=== PATIENT | female | born 1985 | race Hispanic/Latino ===

== ENCOUNTER 2018-10-22 01:16 | Emergency (ER) | payer OTHER ==
[2018-10-22] MEDS ORDERED: Lidocaine 2% Inj (20ml) ONE (05:28)
[2018-10-22 09:13] LABS: BLOOD UREA NITROGEN 16 mg/dl (7-17); GFR NON-AFRICAN AMERICAN > 60
[2018-10-22 09:14] LABS: ALB/GLOB RATIO 1.1 (1.0-2.1); ALBUMIN 3.2 g/dL (3.5-5.0); AST/SGOT 37 U/L (14-36); CALCIUM 8.6 mg/dL (8.4-10.2)
[2018-10-22 09:15] LABS: ALT/SGPT 53 U/L (9-52)
[2018-10-22 09:18] LABS: BASO # 0.1 K/uL (0.0-0.2); EOS # 0.2 K/uL (0.0-0.7); EOS % 2.7 % (0.0-4.0); HEMOGLOBIN 11.2 g/dL (12.0-16.0); LYMPH # 1.7 K/uL (1.0-4.3); MEAN CELL VOLUME 92.4 fl (81.0-99.0); MEAN CORPUSCULAR HEMOGLOBIN 31.4 pg (27.0-31.0); MEAN PLATELET VOLUME 7.8 fl (7.2-11.7); MONO # 0.8 K/uL (0.0-0.8); MONO % 9.7 % (0.0-10.0); NEUT # 5.4 K/uL (1.8-7.0); NEUT % 65.6 % (50.0-75.0); RBC 3.58 Mil/uL (3.80-5.20); WHITE BLOOD COUNT 8.2 K/uL (4.8-10.8)
--- NOTE | 2018-10-22 11:06 | US ---
Date of service: 10/22/2018 HISTORY: ER ORDER COMPARISON: None available. TECHNIQUE: Grayscale, color Doppler and spectral evaluation the pelvis performed transabdominally FINDINGS: UTERUS: Enlarged, measuring 17.2 x 6.9 x 12.2 cm. Heterogeneous and hypervascular. No fibroid or other mass lesion seen. ENDOMETRIUM: Measures 13 mm in diameter. Unremarkable. CERVIX: No cervical abnormality identified. RIGHT OVARY: Not visualized LEFT OVARY: Measures 4.5 x 3.1 x 3.4 cm. No solid mass. Normal flow. FREE FLUID: No significant free fluid noted. OTHER FINDINGS: None. IMPRESSION: Enlarged heterogeneous uterus with increased vascularity, related to state. No evidence of retained products of conception.
--- NOTE | 2018-10-22 19:55 | CP.PCM.CON ---
<Juan Pablo Nieto - Last Filed: 10/22/18 20:01> History of Present Illness - History of Present Illness History of Present Illness: Patient seen and evaluated by Dr. Dempsey and resident at bedside in ED at 4: 30 AM on 10/22/18. 33 y/o F, , s/p presents to ED on PPD6 with complain of vaginal bleedin g. Patient reports having at [facility] with perineal tear repair and since then she continues to have bright red vaginal bleeding with clots. Patient reports noticing heavy vaginal bleeding 12:40 tonight so called EMS. Patient denies any headache, dizziness, CP, SOB, worsening of lower abdominal pain, nausea, vomiting, diarrhea or fever. PMD: Dr. Mcdonald Office No [phone] OBHx: 1 6 days ago, delivered 6 lb baby, 15 mins 2nd stage of labor. PMHx: Asthma PSHx: open heart surgery at 18 month and R aortic valve repair Allergies: NKDA Medications: PNVs, Colace and Advil PRN for pain Social Hx: Denies smoking, Etoh, drugs Review of Systems - EENT Eyes: absent: Change in Vision Ears: absent: Dizziness - Cardiovascular Cardiovascular: absent: Chest Pain, Chest Pain at Rest - Respiratory Respiratory: absent: Dyspnea - Gastrointestinal Gastrointestinal: absent: Abdominal Pain, Nausea, Vomiting - Genitourinary Genitourinary: absent: Change in Urinary Stream, Dysuria - Reproductive: Female Reproductive:Female: Abnormal Vaginal Bleeding Physical Exam - Constitutional Appears: Well, Non-toxic, No Acute Distress - Head Exam Head Exam: ATRAUMATIC, NORMAL INSPECTION, NORMOCEPHALIC - Eye Exam Eye Exam: EOMI, Normal appearance, PERRL - ENT Exam ENT Exam: Mucous Membranes Moist - Neck Exam Neck exam: Positive for: Normal Inspection - Respiratory Exam Respiratory Exam: Clear to Auscultation Bilateral - Cardiovascular Exam Cardiovascular Exam: REGULAR RHYTHM, +S1, +S2 - GI/Abdominal Exam GI & Abdominal Exam: Normal Bowel Sounds, Soft. absent: Tenderness - Exam External exam: Lacerations Speculum exam: Vaginal Bleeding Additional comments: SSE: + vaginal bleeding, + sutures for perineal tear repair. Ozzing blood from vagina. No bleeding from cervix noted. LE: No pedal edema - Extremities Exam Extremities exam: Negative for: calf tenderness, pedal edema, tenderness - Neurological Exam Neurological exam: Alert, Altered, Oriented x3 - Psychiatric Exam Psychiatric exam: Normal Affect, Normal Mood - Skin Skin Exam: Dry, Intact, Normal Color Results - Labs Result Diagrams: 10/22/18 02:00 10/22/18 02:00 Labs: Laboratory Results - last 24 hr 10/22/18 10/22/18 10/22/18 02:00 02:00 02:00 WBC 8.2 RBC 3.58 L Hgb 11.2 L Hct 33.0 L MCV 92.4 MCH 31.4 H MCHC 34.0 RDW 12.0 Plt Count 186 MPV 7.8 Neut % (Auto) 65.6 Lymph % (Auto) 21.0 Will % (Auto) 9.7 Eos % (Auto) 2.7 Baso % (Auto) 1.0 Neut # (Auto) 5.4 Lymph # (Auto) 1.7 Will # (Auto) 0.8 Eos # (Auto) 0.2 Baso # (Auto) 0.1 Sodium 134 Potassium 3.8 Chloride 104 Carbon Dioxide 25 Anion Gap 9 L BUN 16 Creatinine 0.5 L Est GFR ( Amer) > 60 Est GFR (Non-Af Amer) > 60 Random Glucose 94 Calcium 8.6 Total Bilirubin 0.2 AST 37 H ALT 53 H Alkaline Phosphatase 111 Total Protein 6.2 L Albumin 3.2 L Globulin 3.0 Albumin/Globulin Ratio 1.1 Blood Type A NEGATIVE Antibody Screen Positive Antibody Identification ANTI D DUE TO RhoG[facility] BBK History Checked No verified bt Assessment & Plan - Assessment and Plan (Free Text) Assessment: 33 y/o F, , s/p presents to ED on PPD6 with complain of vaginal bleeding. Likely secondary to vaginal laceration/perineal tear. - CBC HGB 11.2, CMP unremarkable - US: Enlarged uterus with increased vascularity but no retained POC or placenta noted. Likely normal changes. - SSE: + vaginal bleeding, + sutures for perineal tear repair. Ozzing blood from vagina. No bleeding from cervix noted. - Vaginal/perineal tear repaired using Vicryl Rapide 2.0 done. No active bleeding S/P repair. Antiseptic precaution - Patient advised to monitor bleeding and RTC/ER if bleeding continues. ER precautions provided. - Will call Dr. Olson office to inform about patient. - Patient to F/U with Dr Dempsey or OBGYN within 1 week. Case discussed with Dr. Dempsey. Juan Pablo Nieto, PGY1 <Abdon Dempsey - Last Filed: 10/27/18 10:05> Results - Labs Result Diagrams: 10/22/18 02:00 10/22/18 02:00 Assessment & Plan - Assessment and Plan (Free Text) Plan: OB Hospitalist note: Pt seen and examined with PGY1. Small active bleeding noted form perineal laceration site. Vagina - no VB noted; Cx no blood from cervical os. When we left to obtain equipment (sutures/local anesthesia/needle delivery driver/customer service), I placed pressure packing in the area. When we came back, the site was bleeding (nowhere else). VB was confirmed from perineum - it was intact but previous sutures not approximated well. Using 2.0 Vicryl Rapide suture, figure of eight sutures placed x 2 - Hemostasis assured. No more bleeding. Call will be placed to her OB provider later in the day. Local care and advised her to follow up later this week to check the site. She understood - Date & Time Date: 10/27/18 Time: 10:05
--- NOTE | 2018-10-22 22:43 | ED PDOC ---
HPI: Female Pain Time Seen by Provider: 10/22/18 01:30 Chief Complaint (Nursing): Female Genitourinary Chief Complaint (Provider): vaginal bleeding History Per: Patient History/Exam Limitations: no limitations Onset/Duration Of Symptoms: Hrs (1.5) Current Symptoms Are (Timing): Still Present Additional History Per: Patient Additional Complaint(s): 33 y/o female brought in by EMS for evaluation of heavy vaginal bleeding x 1.5 hours. Patient states she is 6 days post-vaginal delivery and has had light bleeding since then, which suddenly became heavy with large clots tonight. Denies fever, headache, dizziness, nausea/vomiting, chest pain, shortness of breath, palpitations, abdominal pain, urinary symptoms Past Medical History Reviewed: Historical Data, Nursing Documentation, Vital Signs - Medical History PMH: No Chronic Diseases - Surgical History Surgical History: No Surg Hx - Family History Family History: States: No Known Family Hx Review of Systems ROS Statement: Except As Marked, All Systems Reviewed And Found Negative Genitourinary Female: Positive for: Vaginal Bleeding Physical Exam - Reviewed Nursing Documentation Reviewed: Yes Vital Signs Reviewed: Yes - Physical Exam Appears: Positive for: Well, Non-toxic, No Acute Distress Head Exam: Positive for: ATRAUMATIC, NORMAL INSPECTION, NORMOCEPHALIC Skin: Positive for: Normal Color Eye Exam: Positive for: Normal appearance Cardiovascular/Chest: Positive for: Regular Rate, Rhythm Respiratory: Positive for: Normal Breath Sounds Gastrointestinal/Abdominal: Positive for: Normal Exam, Bowel Sounds, Soft. Negative for: Tenderness Pelvic Exam: Positive for: No Cerv. Motion Tender, Active Bleeding (with + clots in vaginal vault. After gauze applied, no active bleeding from cervix noted), Other (exam public relations counselor Dr. Martinez). Negative for: Cervicitis, Tender Adnexa, Tender Uterus Back: Positive for: Normal Inspection Extremity: Positive for: Normal ROM Neurologic/Psych: Positive for: Alert, Oriented (x3) - Laboratory Results Result Diagrams: 10/22/18 02:00 10/22/18 02:00 Lab Results: Total Bilirubin 0.2 mg/dl (0.2-1.3) 10/22/18 02:00 AST 37 U/L (14-36) H 10/22/18 02:00 ALT 53 U/L (9-52) H 10/22/18 02:00 Alkaline Phosphatase 111 U/L (38-126) 10/22/18 02:00 Total Protein 6.2 G/DL (6.3-8.2) L 10/22/18 02:00 Albumin 3.2 g/dL (3.5-5.0) L 10/22/18 02:00 Globulin 3.0 gm/dL (2.2-3.9) 10/22/18 02:00 Albumin/Globulin Ratio 1.1 (1.0-2.1) 10/22/18 02:00 - Progress ED Course And Treament: -cbc -cmp -pelvis u/s -IV NS bolus Patient evaluated by Dr. Dempsey, Ob on-call; sutures placed for perineal laceration Advised follow up Structural Ironworker this week Return precautions given Disposition - Clinical Impression Clinical Impression: Perineal laceration - Patient ED Disposition Is Patient to be Admitted: No Counseled Patient/Family Regarding: Studies Performed, Diagnosis, Need For Followup - Disposition Disposition: Routine/Home Disposition Time: 05:30 Condition: IMPROVED
== END 2018-10-22 05:30 | disposition home or self-care (01) ==
LOC: H.ER 01:16
DX: N81.89 Other female genital prolapse (principal); Z39.2 Encounter for routine postpartum follow-up